=== PATIENT | male | born 1975 | race Caucasian/White ===

== ENCOUNTER 2021-04-13 11:20 | Inpatient (IN) | payer SELFPAY ==
[2021-04-14 00:10] VITALS: BMI 31.8
[2021-04-14 00:12] VITALS: BP 135/100; PULSE 93; RESP 20; TEMP 36.8; O2SAT 96
--- NOTE | 2021-04-14 00:53 | PC.NURSE ---
46/M SI/Depressed plan to hang himself. Direct Admit from [place], [place] Pt states he is depressed and began to feel SI over the last 2 days. Pt's is terminally ill with cancer in late stage 4, kidneys are shutting down, and she has decided to forego any further treatment. Pt states he is tired and depressed, very worn out from caring for his 14 year old daughter, and his who is a diabetic and amputee. Pt states that he has emphysema and as needed uses an albuteral inhaler and supplements with 2LNC oxygen. pt reports hx of stents and HTN.
[2021-04-14 06:00] VITALS: BP 129/91; PULSE 101; RESP 20; TEMP 36.6; O2SAT 96
--- NOTE | 2021-04-14 08:38 | PC.NURSE ---
refused scheduled Thiamine, Multivitamin, Folic acid
[2021-04-14 13:53] VITALS: BP 121/81; PULSE 64; RESP 18; TEMP 36.4; O2SAT 98
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
[2021-04-14] MEDS: albuterol 8 gm MDI 2 PUFF INHALATION (20:53)
[2021-04-14 20:58] VITALS: PULSE 82; RESP 18; O2SAT 98
[2021-04-14] MEDS: trazodone 50 mg Tablet PO ×2 (21:05→21:44)
[2021-04-14 22:00] VITALS: BP 125/85; PULSE 88; RESP 18; TEMP 36.6; O2SAT 97
[2021-04-15 06:00] VITALS: BP 125/85; PULSE 88; RESP 18; TEMP 36.6; O2SAT 97
--- NOTE | 2021-04-15 08:36 | PM.NPN ---
Subjective NPU Subjective: Interval history: I met with the patient in his room. He woke from sleep when I knocked on his door. He reports feeling fine. He reports trouble sleeping related to noise created by another patient. He says he normally sleeps very well. He reports seeing shadow men last night. He says he is confident in the current plan discussed with him and just wants to make sure he is on track before discharge. <Calvin Lancaster [facility] STDNT - Last Filed: 04/15/21 08:44> Mental Status Exam MSE Comments: I met with the patient in his room. He is well fed and well-groomed. He was calm, cooperative, interactive, and made good eye contact. No psychomotor agitation or retardation Speech is at a regular rate and rhythm, normal volume, good articulation, not pressured. Alert, oriented to person, place, time, situation Attention and concentration were intact to exam Memory is adequate for the interview Mood is fine. Affect is gruff. Thought process is logical and goal-directed. Thought content: The patient denies suicidal ideation, homicidal ideation, paranoia, and AVH. The patient appears focused on resolving his apparent issues related to his depressive symptoms. Insight, judgment, and impulse control are fair. <Calvin Minnaron [facility] STDNT - Last Filed: 04/15/21 08:44> Vitals/I&O/Wt Last Vital Signs Temp 97.9 F 04/15/21 06:00 Pulse 88 04/15/21 06:00 Resp 18 04/15/21 06:00 BP 125/85 04/15/21 06:00 Pulse Ox 97 04/15/21 06:00 <Calvin Lancaster [facility] STDNT - Last Filed: 04/15/21 08:44> Weight last 48 hrs Weight 103.419 kg <Calvin Minnaron [facility] STDNT - Last Filed: 04/15/21 08:44> A&P Additional A&P Information This is a 46-year-old, white male, with a long history of mental health and addiction issues, who presents after relapse with suicidal ideation, significant psychosocial stressors, and off his medication. RECOMMENDATION AND PLAN: 1. Continue current medication except: 2. Start Propranolol 20 mg po tid. 3. Will get some collateral information on medication and see if we can identify the last medication he was taking, which he felt was fairly helpful. 4. Continue q-15 minute checks for safety. 5. Encourage individual, group, and milieu therapy. 6. Encourage sober living treatment after discharge at the highest level of care to which he is willing to commit. <Calvin LancasterGIANNA STDNT - Last Filed: 04/15/21 08:44> Involuntary Hold Information 96 Hour Hold: 96 Hour Involuntary Admission: No <Calvinrajiv Buitragoron GIANNA STDNT - Last Filed: 04/15/21 08:44> Attestations NPU Medical Necessity Statement*: Inpatient hospitalization is medically necessary and the clinically appropriate intervention, at this time. We will monitor medications and make changes as indicated. Likely length of stay is three to five days. <Calvin MinnaGIANNA velasquez STDNT - Last Filed: 04/15/21 08:44> Inpatient hospitalization is medically necessary and be clinically appropriate event and at this time. Patient showing improvement and now had a likely discharge destination and will attempt to get him to this program by 04/18/2021. <Seth Schreiber MD - Last Filed: 04/15/21 17:05> Other Attestations: Other Attestations: I spoke with Montez independently as well as reviewing the interaction medical student and Montez had. I agree with the assessment and documentation above. Do note that for unclear reasons the medical necessity statement says 3 to 5 days initially when in fact we were planning for discharge by Sunday depending on his improvement the program availability that he is going to and access the medication. Otherwise he showing slow improvement and managing the medication well. <Seth Schreiber MD - Last Filed: 04/15/21 17:05> Coding Level of Care Code Acute Material Attendant for g Nayla
[2021-04-15] MEDS: propranolol 20 mg Tablet PO ×3 (08:43→22:02)
--- NOTE | 2021-04-15 08:44 | PC.NURSE ---
refused scheduled mtv, thiamine, folic acid
[2021-04-15 09:42] VITALS: PULSE 88; RESP 18; O2SAT 97
[2021-04-15] MEDS: albuterol 8 gm MDI 2 PUFF INHALATION (09:42)
[2021-04-15 14:00] VITALS: BP 122/86; PULSE 73; RESP 17; TEMP 36.6; O2SAT 97
[2021-04-15 20:23] VITALS: BP 132/95; PULSE 67; RESP 20; TEMP 36.5; O2SAT 96
[2021-04-15] MEDS: trazodone 50 mg Tablet PO (23:43)
[2021-04-16 06:00] VITALS: BP 117/77; PULSE 74; RESP 17; TEMP 36.7; O2SAT 95
[2021-04-16] MEDS: multivitamin therapeutic Tablet 1 TAB PO (09:44)
[2021-04-16] MEDS: propranolol 20 mg Tablet PO ×3 (09:44→21:23)
[2021-04-16] MEDS: thiamine 100 mg Tablet PO (09:44)
[2021-04-16] MEDS: folic acid 1 mg Tablet PO (09:44)
[2021-04-16] MEDS: albuterol 8 gm MDI 2 PUFF INHALATION ×3 (09:54→21:45)
[2021-04-16 13:50] VITALS: BP 114/79; PULSE 78; RESP 15; TEMP 36.4; O2SAT 97
[2021-04-16] MEDS: hyDROXYzine 25 mg Capsule 50 MG PO (14:02)
--- NOTE | 2021-04-16 16:42 | P.PN_ITS ---
Subjective NPU Subjective: Interval history: Montez presents today reporting that the conversation with the program went well and that they are going to accept him but he needs to figure out how to get there in the next couple days. We discussed different possibilities including us helping him get to the program in [place] on Sunday morning. He talked about the possibility of his sister picking him up as early as tomorrow but we agreed we would speak with her to make sure that this work was not in pain and that he is going directly from here to the and not at risk for relapse by spending some time in between. Mental Status Exam MSE Comments: This is a well-nourished, well-developed, white male, in hospital scrubs, with adequate grooming, and eye contact. No abnormal movements. Cooperative with exam in no acute distress. Speech was slightly decreased rate and volume. Mood described as getting better; affect congruent. Thought process, organized. Thought content: patient denied any suicidal or homicidal ideation, there were no delusions reported or noted, patient denied any auditory or visual hallucinations. Attention, concentration, and memory appear intact but were not formally tested. He is alert and oriented times three. Insight and judgment are fair, pulse control limited but improving. Vitals/I&O/Wt Last Vital Signs Temp 97.5 F L 04/16/21 13:50 Pulse 78 04/16/21 13:50 Resp 15 04/16/21 13:50 BP 114/79 04/16/21 13:50 Pulse Ox 97 04/16/21 13:50 A&P Additional A&P Information This is a 46-year-old, white male, with a long history of mental health and addiction issues, who presents after relapse with suicidal ideation, significant psychosocial stressors, and off his medication. RECOMMENDATION AND PLAN: 1. Continue current medication except: 2. Will contact sister if she is going to be his ride otherwise we will discharge in the next 48 hours.. 3. Continue q-15 minute checks for safety. 4. Encourage individual, group, and milieu therapy. 5. Encourage sober living treatment after discharge at the highest level of care to which he is willing to commit. Involuntary Hold Information 96 Hour Hold: 96 Hour Involuntary Admission: No Attestations NPU Medical Necessity Statement*: Inpatient hospitalization is medically necessary and be clinically appropriate event and at this time. Patient showing improvement and now had a likely discharge destination and will attempt to get him to this program by 04/18/2021. Coding Level of Care Code Acute Marketing Intelligence Analyst for Sánchez Winslow
[2021-04-16 21:19] VITALS: BP 134/90; PULSE 66; RESP 15; TEMP 36.8; O2SAT 95
[2021-04-16] MEDS: trazodone 50 mg Tablet PO (21:28)
--- NOTE | 2021-04-16 21:30 | PC.NURSE ---
pt requsted sleep med, trazodone 50mg po given.
[2021-04-16 21:45] VITALS: PULSE 76; RESP 18; O2SAT 98
--- NOTE | 2021-04-16 22:10 | PC.NURSE ---
pt in room resting quietly with both eyes closed.
[2021-04-17 06:00] VITALS: BP 116/77; PULSE 72; RESP 15; TEMP 37.2; O2SAT 95; BMI 31.8
[2021-04-17] MEDS: folic acid 1 mg Tablet PO (09:44)
[2021-04-17] MEDS: multivitamin therapeutic Tablet 1 TAB PO (09:44)
[2021-04-17] MEDS: thiamine 100 mg Tablet PO (09:44)
[2021-04-17] MEDS: propranolol 20 mg Tablet PO ×3 (09:44→21:48)
--- NOTE | 2021-04-17 12:20 | PM.NPN ---
Subjective NPU Subjective: Interval history: Patient presents today reporting that he reached out for a sister who was very happy for him to have a clear treatment plan and place to go in [place]. However she agreed with this copy writer that the best plan was for him to go directly to that program from the hospital. And after thinking about it after talking to her he is also in agreement of this the right thing to do. He reports that he is feeling better and feels the medications are helping. We agreed that we would work with him and his tactical response group officer in the morning to get everything arranged for an early departure to the program in [place]. He was thankful for the assistance in getting these things arranged. Mental Status Exam MSE Comments: This is a well-nourished, well-developed, white male, in hospital scrubs, with adequate grooming, and eye contact. No abnormal movements. Cooperative with exam in no acute distress. Speech was more normal rate and volume. Mood described as better; affect congruent. Thought process, organized. Thought content: patient denied any suicidal or homicidal ideation, there were no delusions reported or noted, patient denied any auditory or visual hallucinations. Attention, concentration, and memory appear intact but were not formally tested. He is alert and oriented times three. Insight and judgment are fair, pulse control improving. Vitals/I&O/Wt Last Vital Signs Temp 98.9 F 04/17/21 06:00 Pulse 72 04/17/21 06:00 Resp 15 04/17/21 06:00 BP 116/77 04/17/21 06:00 Pulse Ox 95 04/17/21 06:00 Weight last 48 hrs Weight 103.419 kg A&P Additional A&P Information This is a 46-year-old, white male, with a long history of mental health and addiction issues, who presents after relapse with suicidal ideation, significant psychosocial stressors, and off his medication. RECOMMENDATION AND PLAN: 1. Continue current medication except. 2. We will discharge in the morning to the sober living program in [place] 3. Continue q-15 minute checks for safety. 4. Encourage individual, group, and milieu therapy. Involuntary Hold Information 96 Hour Hold: 96 Hour Involuntary Admission: No Attestations NPU Medical Necessity Statement*: Inpatient hospitalization is medically necessary and be clinically appropriate event and at this time. Will discharge in the morning to sober living program in [place]. Coding Level of Care Code Acute News Commentator for Sánchez Winslow
[2021-04-17 13:51] VITALS: BP 99/60; PULSE 72; RESP 14; TEMP 36.9; O2SAT 98
[2021-04-17] MEDS: trazodone 50 mg Tablet PO (21:48)
[2021-04-17] MEDS: hyDROXYzine 25 mg Capsule 50 MG PO (21:48)
--- NOTE | 2021-04-17 21:50 | PC.NURSE ---
pt requested sleep and anxiety meds. Trazodone 50mg po for sleep and Vistaril 50mg po for anxiety given.
[2021-04-17 22:00] VITALS: BP 126/82; PULSE 73; RESP 18; TEMP 36.8; O2SAT 96
--- NOTE | 2021-04-17 22:45 | PC.NURSE ---
pt in room resting quietly with both eyes closed.
[2021-04-18] MEDS: propranolol 20 mg Tablet PO (08:46)
--- NOTE | 2021-04-18 08:46 | PC.NURSE ---
refused scheduled Thiamine, mtv, folic acid
[2021-04-18 10:39] VITALS: BP 126/82; PULSE 73; RESP 18; TEMP 36.8; O2SAT 96
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
== END 2021-04-18 14:06 | disposition home or self-care (01) | DRG 880 ==
PROVIDERS: Admitting Provider Psychiatry & Neurology Child & Adolescent Psychiatry; Visit Provider Psychiatry & Neurology Psychiatry
DX: F41.9 Anxiety disorder, unspecified (principal); R45.851 Suicidal ideations; Z91.5 Personal history of self-harm; F17.210 Nicotine dependence, cigarettes, uncomplicated; I25.10 Atherosclerotic heart disease of native coronary artery without angina pectoris; F10.10 Alcohol abuse, uncomplicated
CPT/HCPCS: 94640; J3535